=== PATIENT | male | born 1995 | race African-American/Black ===

== ENCOUNTER 2023-07-29 03:26 | Emergency (ER) | payer OTHER ==
[2023-07-29 03:30] VITALS: BP 119/78; PULSE 60; RESP 20; TEMP 98.7; BMI 32.6
[2023-07-29] MEDS ORDERED: AZITHROMYCIN 500 MG TABLET PO ONE (03:58)
[2023-07-29] MEDS ORDERED: AZITHROMYCIN 500 MG TABLET ONE (04:04)
== END 2023-07-29 04:50 | disposition home or self-care (01) ==
LOC: JER 03:26
DX: R36.9 Urethral discharge, unspecified (principal)
CPT/HCPCS: 99283-25